=== PATIENT | male | born 1950 | race Caucasian/White ===

== ENCOUNTER → 2021-08-01 | Outpatient (CLI) | payer MEDICARE, OTHER, SELFPAY ==
[2021-08-01 14:13] LABS: Lyme Ab Screen Interpretation REF LAB
[2021-08-04 17:13] LABS: Lyme Scn Total Ab w/Rflx Negative (Negative)
== END | disposition home or self-care (01) ==
LOC: MTLAB 14:04
PROVIDERS: PCP Internal Medicine; Referring Provider Dermatology; Visit Provider Dermatology
DX: L30.8 Other specified dermatitis (principal)
CPT/HCPCS: 36415; 86618